=== PATIENT | female | born 1940 | race American Indian/Alaskan Native ===

== ENCOUNTER 2020-01-02 21:09 | Observation (INO) | payer MEDICARE, OTHER ==
--- NOTE | 2020-01-02 22:21 | Emergency Department Report ---
Blank Doc - Documentation Documentation: 79-year-old female that presents with epigastric abdominal pain. This initial assessment/diagnostic orders/clinical plan/treatment(s) is/are subject to change based on patient's health status, clinical progression and re- assessment by fellow clinical providers in the ED. Further treatment and workup at subsequent clinical providers discretion. Patient/guardians urged not to elope from the ED as their condition may be serious if not clinically assessed and managed. Initial orders include: 1- Patient sent to Main ED for further evaluation and treatment 2- cardiac workup
--- NOTE | 2020-01-02 23:01 | XRay Report ---
CHEST 2 VIEWS INDICATION / CLINICAL INFORMATION: MAIN: Chest Pain; CP w/epigastric pain onset 1d, "moves to the back; been belching"; h/o GERD, "don't take the medicine, it makes me sick". COMPARISON: 03/19/2014 FINDINGS: SUPPORT DEVICES: None. HEART / MEDIASTINUM: No significant abnormality. LUNGS / PLEURA: No significant pulmonary or pleural abnormality. No pneumothorax. ADDITIONAL FINDINGS: No significant additional findings. IMPRESSION: 1. No acute findings. No interval change. Signer Name: Jeimy Chaves MD Signed: 01/02/2020 10:57 PM Workstation Name: [id number]
[2020-01-02 23:47] LABS: Hematocrit 36.2 % (30.3-42.9); Hemoglobin 11.7 gm/dl (10.1-14.3); Mean Corpuscular HGB Conc 32 % (30-34); Mean Corpuscular Volume 95 fl (79-97); Platelet Count 302 K/mm3 (140-440); Red Blood Count 3.83 M/mm3 (3.65-5.03); Red Cell Distribution Width 12.6 % (13.2-15.2)
[2020-01-02 23:57] LABS: Alanine Aminotransferase 14 units/L (7-56); Albumin 4.4 g/dL (3.9-5); BUN/Creatinine Ratio 15; Blood Urea Nitrogen 12 mg/dL (7-17); Hemolysis Index 4
--- NOTE | 2020-01-03 00:03 | Emergency Department Report ---
HPI - General Chief Complaint: Abdominal Pain Time Seen by Provider: 01/02/20 22:20 - HPI HPI: 79-year-old -[place] female presents to the emergency department with complaint of some upper abdominal pain, midsternal chest discomfort and increased gas/belching. Patient says that she had some upper abdominal or epigastric pain starting yesterday. Today the pain also traveled up the middle of the chest and around to her back. She complains of a history of acid reflux. The patient tried some Rolaids for symptoms with transient relief. Primary care physician is Dr. Jones, mechanical engineering professor is Dr. Larsen, and power chisel operator is Dr. Maher. No recent travel or sick contacts at home. She denies any fever, shortness of breath, diaphoresis, lower extremity swelling. ED Past Medical Hx - Past Medical History Previous Medical History?: Yes Hx Hypertension: Yes Hx GERD: Yes (non-compliant "med makes me sick") Hx Arthritis: No - Surgical History Past Surgical History?: Yes Additional Surgical History: R ovary removed 1969 - Social History Smoking Status: Never Smoker Substance Use Type: None - Medications Home Medications: Home Medications Medication Instructions Recorded Confirmed Last Taken Type Ascorbic Acid [Vitamin C] 1,000 mg PO QDAY 03/10/14 03/19/14 03/19/14 History Cyclobenzaprine [Flexeril] 10 mg PO BID 03/10/14 03/19/14 03/19/14 History NIFEdipine [Procardia Xl] 60 mg PO QDAY 03/10/14 03/19/14 03/19/14 History Valsartan [Diovan] 160 mg PO QDAY 03/10/14 03/19/14 03/19/14 History HYDROcodone/APAP 5-325 [Paia 1 each PO Q6HR PRN #20 tablet 03/11/14 03/19/14 03/19/14 Rx 5/325 mg] Pregabalin [Lyrica] 50 mg PO BID 03/19/14 03/19/14 03/19/14 History ED Review of Systems ROS: Stated complaint: CHEST PAIN GAS Other details as noted in HPI Comment: All other systems reviewed and negative Constitutional: denies: chills, fever Eyes: denies: eye pain, vision change ENT: denies: ear pain, throat pain Respiratory: denies: cough, shortness of breath Cardiovascular: chest pain. denies: palpitations Gastrointestinal: abdominal pain. denies: vomiting Genitourinary: denies: dysuria, discharge Musculoskeletal: denies: joint swelling, arthralgia Skin: denies: rash, lesions Neurological: denies: headache, weakness Physical Exam - Physical Exam Vital Signs: Vital Signs 01/02/20 21:47 Temperature 98.8 F Pulse Rate 53 L Respiratory 12 Rate Blood Pressure 193/93 O2 Sat by Pulse 98 Oximetry Physical Exam: GENERAL: The patient is well-developed well-nourished. HENT: Normocephalic. Atraumatic. Patient has moist mucous membranes. EYES: Extraocular motions are intact. NECK: Supple. Trachea is midline. CHEST/LUNGS: Clear to auscultation. There is no respiratory distress noted. HEART/CARDIOVASCULAR: Regular. There is no tachycardia. ABDOMEN: Abdomen is soft. Mild right upper quadrant and epigastric tenderness to palpation. No guarding. Patient has normal bowel sounds. There is no abdominal distention. SKIN: Skin is warm and dry. NEURO: The patient is awake, alert, and oriented. The patient is cooperative. The patient has no focal neurologic deficits. Normal speech. MUSCULOSKELETAL: There is no tenderness or deformity. There is no evidence of acute injury. ED Course Vital Signs 01/02/20 21:47 Temperature 98.8 F Pulse Rate 53 L Respiratory 12 Rate Blood Pressure 193/93 O2 Sat by Pulse 98 Oximetry ED Medical Decision Making - Lab Data Result diagrams: 01/02/20 23:11 01/02/20 23:11 - EKG Data -: EKG Interpreted by Me EKG shows normal: sinus rhythm, axis, intervals, QRS complexes, ST-T waves (Flattening of T waves) Rate: bradycardia (52 bpm) - EKG Data When compared to previous EKG there are: no significant change Interpretation: unchanged when compared t (03/19/14) - Radiology Data Radiology results: report reviewed, image reviewed interpreted by me: Chest x-ray does not show any acute process. There are no pleural effusions, obvious pneumonia and there is no pneumothorax. Abdominal x-ray shows nonspecific nonobstructive bowel gas. ULTRASOUND ABDOMEN, LIMITED (RIGHT UPPER QUADRANT) INDICATION / CLINICAL INFORMATION: Upper abd pain. COMPARISON: None available. FINDINGS: PANCREAS: Visualized portion shows no significant abnormality. LIVER: No significant abnormality. GALLBLADDER: Small amount of sludge is present within the gallbladd er. No gallbladder wall thickening or abnormal gallbladder distention. BILE DUCTS: No significant abnormality. Common bile duct measures 2 mm. FREE FLUID: None. ADDITIONAL FINDINGS: Right kidney was also imaged. There are 2 simple cysts in the right kidney measuring proximally 4 cm each.. IMPRESSION: 1. Small amount of sludge within the gallbladder lumen. No abnormal gallbladder distention or gallbladder wall thickening. 2. Incidental finding of right renal simple cysts. - Medical Decision Making This patient presents to the emergency department with the complaint of a 2-day history of some upper abdominal pain and a 1 day history of some chest discomf ort. EKG does not show any signs of ST elevation ME. Labs have been unremarkable thus far including CBC, metabolic panel and troponin level. Chest x-ray does not show any pneumonia, pleural effusions, pneumothorax, focal consolidation, or any other acute process. Abdominal x-ray shows nonspecific nonobstructive bowel gas. Abdominal ultrasound shows some small amount of gallbladder sludge without signs of cholecystitis. While the patient's chest pains appear to come and go, she complains of feeling some generalized weakness. She also presents with elevated blood pressure. For these reasons, as well as a moderate heart score, the patient will be admitted to the hospital for further evaluation and treatment and was accepted for admission by the hospitalist, Dr. Lorenz. - Differential Diagnosis ME, cholelithiasis, cholecystitis, pancreatitis Critical Care Time: No Critical care attestation.: If time is entered above; I have spent that time in minutes in the direct care of this critically ill patient, excluding procedure time. ED Disposition Clinical Impression: Hypertensive urgency, Acute chest pain, Gallbladder sludge Abdominal pain Qualifiers: Abdominal location: upper abdomen, unspecified Qualified Code(s): R10.10 - Upper abdominal pain, unspecified Disposition: -09 OP ADMIT IP TO THIS HOSP Is pt being admited?: Yes Condition: Fair Time of Disposition: 02:46 Heart Score - HEART Score History: Slightly suspicious EKG: Normal Age: > 65 Risk factors: 1-2 risk factors Troponin: < normal limit HEART Score: 3 - Critical Actions Critical Actions: 0-3 pts:0.9-1.7%risk of adverse cardiac event.Candidate for discharge
[2020-01-03 00:10] LABS: INR 1.1 (0.87-1.13)
[2020-01-03 00:11] LABS: Partial Thromboplastin Time 32.3 Sec. (24.2-36.6)
--- NOTE | 2020-01-03 00:20 | XRay Report ---
ABDOMEN, 2 VIEWS INDICATION / CLINICAL INFORMATION: Abd pain. COMPARISON: None. FINDINGS: There are a few slightly prominent loops of gas containing small bowel in the left upper quadrant and central abdomen. I do not see any true abnormal dilatation. There is no free air. Normal colonic gas is noted Impression: Nonspecific bowel gas pattern. No evidence for obstruction. Signer Name: Jeimy Chaves MD Signed: 01/03/2020 12:16 AM Workstation Name: [id number]
[2020-01-03] MEDS ORDERED: LIDOCAINE VISCOUS 2% 15 ML ORAL LIQD PO ONE (01:56)
[2020-01-03] MEDS ORDERED: cloNIDine 0.1 MG TAB PO ONE (01:56)
--- NOTE | 2020-01-03 02:09 | Ultrasound Report ---
ULTRASOUND ABDOMEN, LIMITED (RIGHT UPPER QUADRANT) INDICATION / CLINICAL INFORMATION: Upper abd pain. COMPARISON: None available. FINDINGS: PANCREAS: Visualized portion shows no significant abnormality. LIVER: No significant abnormality. GALLBLADDER: Small amount of sludge is present within the gallbladder. No gallbladder wall thickening or abnormal gallbladder distention. BILE DUCTS: No significant abnormality. Common bile duct measures 2 mm. FREE FLUID: None. ADDITIONAL FINDINGS: Right kidney was also imaged. There are 2 simple cysts in the right kidney measu ring proximally 4 cm each.. IMPRESSION: 1. Small amount of sludge within the gallbladder lumen. No abnormal gallbladder distention or gallbla dder wall thickening. 2. Incidental finding of right renal simple cysts. Signer Name: Jeimy Chaves MD Signed: 01/03/2020 2:04 AM Workstation Name: [id number]
[2020-01-03] MEDS ORDERED: hydrALAZINE 20 MG/1 ML INJ IV ONE (02:11)
[2020-01-03] MEDS ORDERED: ASPIRIN 81 MG TAB CHEW PO ONE (02:12)
[2020-01-03] MEDS: ALUM-MAG HYDROXIDE-SIMETHICONE 200-200-20MG/5ML ORAL LIQD 30 ML PO ONE ×2 (02:53→02:54)
[2020-01-03] MEDS ORDERED: ONDANSETRON 4 MG/2 ML INJ IV PRN (02:56)
[2020-01-03] MEDS ORDERED: ACETAMINOPHEN 325 MG TAB PO PRN (02:56)
[2020-01-03] MEDS ORDERED: oxyCODONE /ACETAMINOPHEN 5-325MG TAB PO PRN (03:03)
--- NOTE | 2020-01-03 03:03 | History and Physical Report ---
History of Present Illness History of present illness: 79-year-old woman with a history of hypertension, GERD, noncompliant with her GERD medication because it makes her sick comes emergency room with complaints of chest pain that started yesterday. Pain is in the right substernal area which she describes as a sharp pain, intermittent every 10 minutes, intensity 5- 10, radiating around to the back, cannot identify exacerbating factor. Denies nausea vomiting, shortness of breath, diaphoresis or palpitation. Patient will be admitted for chest pain evaluation Review Of Systems: Constitutional: no weight loss, fever, chills Ears, eyes, nose, mouth and throat: no nasal congestion, no nasal discharge, no sinus pressure, blurry vision, diplopia Neck: No neck pain or rigidity. Cardiovascular: No palpitations Respiratory: No shortness of breath, cough Gastrointestinal: No hematochezia Genitourinary : no dysuria, frequency Musculoskeletal: no muscle ache , joint pain Integumentary: no rash, no pruritis Neurological: no parathesias, focal weakness Endocrine: no cold or heat intolerance, no polyuria or polydipsia Hematologic/Lymphatic: no easy bruising, no easy bleeding, no gland swelling Allergic/Immunologic: no urticaria, no angioedema. PAST MEDICAL HISTORY: hypertension, GERD, PAST SURGICAL HISTORY: Removal of the right fallopian and ovary SOCIAL HISTORY: Denies alcohol, tobacco, drugs FAMILY HISTORY: Hypertension Medications and Allergies Allergies Allergy/AdvReac Type Severity Reaction Status Date / Time monosodium Allergy Mild Swelling Uncoded 03/10/14 21:03 sesame Allergy Mild Shortness Uncoded 03/10/14 21:00 of Breath Home Medications Medication Instructions Recorded Confirmed Last Taken Type Ascorbic Acid [Vitamin C] 1,000 mg PO QDAY 03/10/14 03/19/14 03/19/14 History Cyclobenzaprine [Flexeril] 10 mg PO BID 03/10/14 03/19/14 03/19/14 History NIFEdipine [Procardia Xl] 60 mg PO QDAY 03/10/14 03/19/14 03/19/14 History Valsartan [Diovan] 160 mg PO QDAY 03/10/14 03/19/14 03/19/14 History HYDROcodone/APAP 5-325 [[place] 1 each PO Q6HR PRN #20 tablet 03/11/14 03/19/14 03/19/14 Rx 5/325 mg] Pregabalin [Lyrica] 50 mg PO BID 03/19/14 03/19/14 03/19/14 History Active Meds: Active Medications Acetaminophen (Tylenol) 650 mg PO Q4H PRN PRN Reason: Pain MILD(1-3)/Fever >100.5/SHAFER Enoxaparin Sodium (Enoxaparin) 30 mg SUB-Q QDAY YEN Ondansetron HCl (Zofran) 4 mg IV Q8H PRN PRN Reason: Nausea And Vomiting Sodium Chloride (Sodium Chloride Flush Syringe 10 Ml) 10 ml IV BID YEN Sodium Chloride (Sodium Chloride Flush Syringe 10 Ml) 10 ml IV PRN PRN PRN Reason: LINE FLUSH Exam - Physical Exam Narrative exam: Gen. appearance: Patient lying in bed, no apparent distress HEENT: Normocephalic, atraumatic, pupils equally round and reactive to light, extraocular movement intact, and no sclericterus,. No JVD or thyromegaly or nodule,neck supple, no carotid bruit ,mucous membranes moist, no exudate or erythema Heart: S1, S2, regular rate and rhythm Lungs: Clear bilaterally, breathing comfortable Abdomen: Positive bowel sounds, nontender, nondistended, no organomegaly Extremity: no edema, cyanosis, clubbing Skin: No rash, nodules, warm, dry Neuro: speech is fluent, moves extremities, sensory intact - Constitutional Vitals: Temp Pulse Resp BP Pulse Ox 98.8 F 53 L 12 193/93 98 01/02/20 21:47 01/02/20 21:47 01/02/20 21:47 01/02/20 21:47 01/02/20 21:47 Results - Labs CBC & Chem 7: 01/02/20 23:11 01/02/20 23:11 Labs: Abnormal lab results 01/02/20 Range/Units 23:11 WBC 3.9 L (4.5-11.0) K/mm3 RDW 12.6 L (13.2-15.2) % - Imaging and Cardiology EKG: image reviewed Chest x-ray: report reviewed US - abdomen: report reviewed Assessment and Plan Assessment Chest pain, atypical Check cardiac enzymes, consult cardiology Start aspirin, Percocet Hypertension uncontrolled Start IV hydralazine for blood pressure control Continue outpatient medications DVT prophylaxis
[2020-01-03 04:03] LABS: Basophils # (Auto) 0.1 K/mm3 (0.0-0.1); Basophils % (Auto) 1.3 % (0.0-1.8); Eosinophils # (Auto) 0.2 K/mm3 (0.0-0.4); Eosinophils % (Auto) 4.5 % (0.0-4.3); Hematocrit 35.7 % (30.3-42.9); Hemoglobin 12.1 gm/dl (10.1-14.3); Lymphocytes # (Auto) 1.5 K/mm3 (1.2-5.4); Lymphocytes % (Auto) 36.6 % (13.4-35.0); Mean Corpuscular HGB Conc 34 % (30-34); Mean Corpuscular Volume 92 fl (79-97); Monocytes # (Auto) 0.3 K/mm3 (0.0-0.8); Monocytes % (Auto) 7.3 % (0.0-7.3); Platelet Count 290 K/mm3 (140-440); Red Blood Count 3.87 M/mm3 (3.65-5.03); Red Cell Distribution Width 12.6 % (13.2-15.2)
[2020-01-03 04:16] LABS: BUN/Creatinine Ratio 14; Blood Urea Nitrogen 11 mg/dL (7-17); Calcium 9.8 mg/dL (8.4-10.2); Hemolysis Index 13
[2020-01-03 04:19] LABS: Creatine Kinase MB 1.3 ng/mL (0.0-4.0)
[2020-01-03] MEDS: hydrALAZINE 20 MG/1 ML INJ IV PRN (06:44)
[2020-01-03 09:25] LABS: Creatine Kinase MB 1.2 ng/mL (0.0-4.0)
[2020-01-03] MEDS: ENOXAPARIN 40 MG/0.4 ML INJ SUB-Q SCH (09:59)
[2020-01-03] MEDS: ASPIRIN 81 MG TAB CHEW PO SCH (09:59)
--- NOTE | 2020-01-03 11:55 | Event Note ---
Date: 01/03/20 Patient with chest pain,abd pain. I have seen and examined her.
--- NOTE | 2020-01-03 12:32 | Consultation ---
History of Present Illness Consult date: 01/03/20 Consult reason: chest pain History of present illness: This is an 79-year old woman who presented with complaint of abdominal pain and increased gas/belching. Patient reports pain traveled under her right breast and around to her back. She denies midsternal chest pain. Abdominal reports nonspecific bowel gas pattern. Chest x-ray is negative. An ECG is sinus bradycardia with nonspecific Twave abnormalities. Patient is known to [facility] and follows with Dr Maher on a routine basis. In 2018 she underwent a persantine thallium stress test that was normal myocardial perfusion. An echocardiogram done a month ago documents a normal LVEF 50%. Medications and Allergies Allergies Allergy/AdvReac Type Severity Reaction Status Date / Time monosodium Allergy Mild Swelling Uncoded 03/10/14 21:03 sesame Allergy Mild Shortness Uncoded 03/10/14 21:00 of Breath Home Medications Medication Instructions Recorded Confirmed Last Taken Type Ascorbic Acid [Vitamin C] 1,000 mg PO QDAY 03/10/14 01/03/20 01/02/20 History NIFEdipine [Procardia Xl] 60 mg PO QDAY 03/10/14 01/03/20 01/02/20 History Losartan Potassium 100 mg PO QDAY 01/03/20 01/03/20 01/01/20 History Active Meds: Active Medications Acetaminophen (Tylenol) 650 mg PO Q4H PRN PRN Reason: Pain MILD(1-3)/Fever >100.5/SHAFER Aspirin (Baby Aspirin) 81 mg PO QDAY [facility] Last Admin: 01/03/20 09:59 Dose: 81 mg Documented by: Enoxaparin Sodium (Enoxaparin) 40 mg SUB-Q QDAY [facility] Last Admin: 01/03/20 09:59 Dose: Not Given Documented by: Hydralazine HCl (Apresoline) 5 mg IV Q6H PRN PRN Reason: Hypertension Last Admin: 01/03/20 06:44 Dose: 5 mg Documented by: Ondansetron HCl (Zofran) 4 mg IV Q8H PRN PRN Reason: Nausea And Vomiting Oxycodone/Acetaminophen (Percocet 5/325) 1 tab PO Q6H PRN PRN Reason: Pain, Moderate (4-6) Sodium Chloride (Sodium Chloride Flush Syringe 10 Ml) 10 ml IV BID [facility] Last Admin: 01/03/20 09:59 Dose: 10 ml Documented by: Sodium Chloride (Sodium Chloride Flush Syringe 10 Ml) 10 ml IV PRN PRN PRN Reason: LINE FLUSH Physical Examination Vital Signs Temp Pulse Resp BP Pulse Ox 98.8 F 53 L 12 193/93 98 01/02/20 21:47 01/02/20 21:47 01/02/20 21:47 01/02/20 21:47 01/02/20 21:47 General appearance: no acute distress HEENT: Positive: PERRL Neck: Positive: trachea midline Cardiac: Positive: Reg Rate and Rhythm Lungs: Positive: Decreased Breath Sounds Neuro: Positive: Grossly Intact Extremities: Absent: edema Results 01/03/20 03:49 01/03/20 03:49 Cardiac Enzymes 01/02/20 01/03/20 01/03/20 Range/Units 23:11 03:49 08:45 AST 19 (5-40) units/L CK-MB (CK-2) 1.3 1.2 (0.0-4.0) ng/mL Coagulation 01/02/20 Range/Units 23:11 PT 14.3 (12.2-14.9) Sec. INR 1.10 (0.87-1.13) APTT 32.3 (24.2-36.6) Sec. CBC 01/02/20 01/03/20 Range/Units 23:11 03:49 WBC 3.9 L 4.1 L (4.5-11.0) K/mm3 RBC 3.83 3.87 (3.65-5.03) M/mm3 Hgb 11.7 12.1 (10.1-14.3) gm/dl Hct 36.2 35.7 (30.3-42.9) % Plt Count 302 290 (140-440) K/mm3 Lymph # Molder Pipe Covering 1.5 [place] # Molder Pipe Covering 0.3 Eos # Molder Pipe Covering 0.2 Baso # Molder Pipe Covering 0.1 Comprehensive Metabolic Panel 01/02/20 01/03/20 Range/Units 23:11 03:49 Sodium 138 139 (137-145) mmol/L Potassium 3.9 3.7 (3.6-5.0) mmol/L Chloride 100.5 102.5 (98-107) mmol/L Carbon Dioxide 25 24 (22-30) mmol/L BUN 12 11 (7-17) mg/dL Creatinine 0.8 0.8 (0.7-1.2) mg/dL Glucose 94 97 (65-100) mg/dL Calcium 10.0 9.8 (8.4-10.2) mg/dL AST 19 (5-40) units/L ALT 14 (7-56) units/L Alkaline Phosphatase 69 (35-129) units/L Total Protein 7.2 (6.3-8.2) g/dL Albumin 4.4 (3.9-5) g/dL Assessment and Plan Epigastric pain Hx of GERD Hypertension Normal MPI 04/2018. LVEF 50% by echo 11/2019. No cardiac workup indicated. Management of epigastric pain as per primary team.
[2020-01-03] MEDS ORDERED: HYDROcodone/ACETAMINOPHEN 5-325 MG TAB PO PRN (12:50)
[2020-01-03] MEDS ORDERED: PANTOPRAZOLE 40 MG INJ IV SCH (13:00)
[2020-01-03] MEDS: PANTOPRAZOLE 40 MG INJ IV SCH (13:47)
[2020-01-03] MEDS ORDERED: SIMETHICONE 80 MG CHEW TAB PO PRN (13:55)
[2020-01-04] MEDS: PANTOPRAZOLE 40 MG INJ IV SCH (03:53)
[2020-01-04] MEDS: ASPIRIN 81 MG TAB CHEW PO SCH (09:35)
--- NOTE | 2020-01-04 09:36 | Progress Note ---
Assessment and Plan Epigastric pain Hx of GERD Hypertension Normal MPI 04/2018. LVEF 50% by echo 11/2019. Recommendations: Optimal blood pressure management. Otherwise, conservative cardiac management. Subjective Date of service: 01/04/20 Interval history: Patient is resting in bed comfortably. Blood pressure 180/63 this morning. Objective Vital Signs Temp Pulse Resp BP Pulse Ox 01/04/20 08:30 98.2 F 48 L 18 180/63 96 01/04/20 04:14 98.8 F 52 L 18 163/70 97 01/04/20 04:00 52 L 01/04/20 00:00 18 01/03/20 23:06 99.0 F 53 L 18 167/60 96 01/03/20 21:37 99 01/03/20 20:00 55 L 01/03/20 19:41 99.3 F 57 L 18 146/60 96 01/03/20 16:36 99.5 F 55 L 18 166/60 97 01/03/20 10:27 98.3 F 20 137/57 - Physical Examination General: No Apparent Distress HEENT: Positive: PERRL Neck: Positive: trachea midline Cardiac: Positive: Bradycardia Lungs: Positive: Decreased Breath Sounds Neuro: Positive: Grossly Intact Extremities: Absent: edema
[2020-01-04] MEDS ORDERED: ASCORBIC ACID 500 MG TAB PO SCH (10:00)
[2020-01-04] MEDS ORDERED: LOSARTAN 50 MG TAB PO SCH (10:00)
[2020-01-04] MEDS ORDERED: NIFEdipine XL 90 MG TAB PO SCH (10:00)
[2020-01-04] MEDS: hydrALAZINE 20 MG/1 ML INJ IV PRN (10:03)
[2020-01-04] MEDS ORDERED: NIFEdipine XL 60 MG TAB PO SCH (10:30)
[2020-01-04] MEDS: ENOXAPARIN 40 MG/0.4 ML INJ SUB-Q SCH (11:22)
--- NOTE | 2020-01-04 12:47 | Discharge Summary ---
Providers - Providers Date of Admission: 01/03/20 04:17 Date of discharge: 01/04/20 Attending physician: SHAHAB BANERJEE 01/03/20 02:56 Consult to Physician [CONS] Routine Comment: Consulting Provider: MACI MATTA Physician Instructions: Reason For Exam: cp Primary care physician: GHASSAN ALAS Hospitalization Condition: Fair Disposition: DC-01 TO HOME OR SELFCARE - Discharge Diagnoses (1) Acute chest pain Status: Acute Comment: Due to GERD (2) GERD (gastroesophageal reflux disease) Status: Acute Exam - Constitutional Vitals: Temp Pulse Resp BP Pulse Ox 98.4 F 70 18 146/53 97 01/04/20 11:00 01/04/20 11:25 01/04/20 11:00 01/04/20 11:25 01/04/20 11:00 Plan Activity: advance as tolerated Diet: low fat, low cholesterol, low salt Plan of Treatment: 1.Follow up with PCP in 1 week. 2.Follow up with GI in 1 week Follow up with: GHASSAN ALAS JR, MD [Primary Care Provider] - 7 Days Prescriptions: Pantoprazole [Protonix TAB] 40 mg PO DAILY 30 Days tablet
[2020-01-04 14:25] VITALS: BP 154/53
[2020-01-04] MEDS ORDERED: PANTOPRAZOLE 40 MG TAB PO SCH (22:00)
== END 2020-01-04 15:50 | disposition home or self-care (01) ==
LOC: ED 21:09 → INTOOBSV 01-03 04:17 → 4A 01-03 04:17
PROVIDERS: ADMIT Internal Medicine; ATTEND Internal Medicine
DX: R07.89 Other chest pain (principal); I16.0 Hypertensive urgency; I10 Essential (primary) hypertension; K82.4 Cholesterolosis of gallbladder; E78.5 Hyperlipidemia, unspecified
CPT/HCPCS: 36415; 71046; 74019; 76705; 80048; 80053; 82550; 82553; 83690; 84439; 84443; 84484; 85025; 85610; 85730; 93005; 93010; 96374; 96375; 96376; 99285; C9113; G0378; J0360; J1650

== ENCOUNTER 2021-10-25 08:29 | Observation (INO) | payer MEDICARE, OTHER ==
[2021-10-25 12:26] LABS: Bilirubin,Urine NEG (Negative); Blood,Urine NEG (Negative); Color,Urine Yellow (Yellow); Mucus,Urine FEW /HPF; Protein,Urine <15 mg/dL mg/dL (Negative); Urobilinogen,Urine < 2.0 mg/dL (<2.0)
[2021-10-25] MEDS ORDERED: PANTOPRAZOLE 40 MG INJ IV ONE (12:26)
[2021-10-25] MEDS ORDERED: SODIUM CHLORIDE 0.9% 1000 ML 1,000 ML IV ONE (12:26)
--- NOTE | 2021-10-25 12:38 | Emergency Department Report ---
ED GI Bleed HPI - General Chief complaint: GI Bleed Stated complaint: RECTAL BLEEDING Time Seen by Provider: 10/25/21 12:24 Source: patient, EMS Mode of arrival: Stretcher Limitations: No Limitations - History of Present Illness Initial comments: Patient is 80 years old female with history of GERD and hypertension. Patient presented to the ER complaining of lower GI bleed. Patient stated that symptoms started yesterday with loose bowel however last night she had 2 episode of bright red blood and 2 episode this morning. Patient stated that she was diagnosed with upper respiratory infection at an urgent care and she was given prednisone for 5 days. Patient denied any dizziness, chest pain, shortness of breath, nausea or vomiting. No hematemesis, hemoptysis or hematuria. MD complaint: gross hematochezia -: Last night Severity scale (0 -10): 0 - Related Data Home Medications Medication Instructions Recorded Confirmed Last Taken Ascorbic Acid [Vitamin C] 1,000 mg PO QDAY 03/10/14 01/03/20 01/02/20 NIFEdipine [Procardia Xl] 60 mg PO QDAY 03/10/14 01/03/20 01/02/20 Losartan Potassium 100 mg PO QDAY 01/03/20 01/03/20 01/01/20 Previous Rx's Medication Instructions Recorded Last Taken Type Pantoprazole [Protonix TAB] 40 mg PO DAILY 30 Days tablet 01/04/20 Unknown Rx Allergies Allergy/AdvReac Type Severity Reaction Status Date / Time monosodium Allergy Mild Swelling Uncoded 03/10/14 21:03 sesame Allergy Mild Shortness Uncoded 03/10/14 21:00 of Breath ED Review of Systems ROS: Stated complaint: RECTAL BLEEDING Other details as noted in HPI Comment: All other systems reviewed and negative Constitutional: denies: chills, fever ENT: congestion Respiratory: denies: cough, shortness of breath, SOB with exertion, SOB at rest, wheezing Gastrointestinal: hematochezia. denies: abdominal pain, nausea, vomiting, diarrhea, constipation, hematemesis, melena Musculoskeletal: denies: back pain Neurological: denies: headache, weakness, numbness, paresthesias ED Past Medical Hx - Past Medical History Previous Medical History?: Yes Hx Hypertension: Yes Hx Congestive Heart Failure: No Hx Diabetes: No Hx GERD: Yes (non-compliant "med makes me sick") Hx Arthritis: No Hx Asthma: Yes Hx COPD: No - Surgical History Additional Surgical History: R ovary removed 1969 - Social History Smoking Status: Never Smoker - Medications Home Medications: Home Medications Medication Instructions Recorded Confirmed Last Taken Type Ascorbic Acid [Vitamin C] 1,000 mg PO QDAY 03/10/14 01/03/20 01/02/20 History NIFEdipine [Procardia Xl] 60 mg PO QDAY 03/10/14 01/03/20 01/02/20 History Losartan Potassium 100 mg PO QDAY 01/03/20 01/03/20 01/01/20 History Pantoprazole [Protonix TAB] 40 mg PO DAILY 30 Days tablet 01/04/20 Unknown Rx ED Physical Exam - General Limitations: No Limitations General appearance: alert, in no apparent distress - Head Head exam: Present: atraumatic, normocephalic, normal inspection - Eye Eye exam: Present: normal appearance - ENT ENT exam: Present: normal exam, normal orophraynx, mucous membranes moist - Neck Neck exam: Present: normal inspection, full ROM. Absent: tenderness, meni ngismus - Respiratory Respiratory exam: Present: normal lung sounds bilaterally - Cardiovascular Cardiovascular Exam: Present: bradycardia - GI/Abdominal GI/Abdominal exam: Present: soft, normal bowel sounds. Absent: distended, tenderness, guarding, rebound, rigid, organomegaly, mass, bruit, pulsatile mass, hernia - Rectal Rectal exam: Present: hemorrhoids - Extremities Exam Extremities exam: Present: normal inspection, full ROM, normal capillary refill. Absent: tenderness - Back Exam Back exam: Present: normal inspection, full ROM. Absent: CVA tenderness (R), CVA tenderness (L) - Neurological Exam Neurological exam: Present: alert, oriented X3, CN II-XII intact, normal gait, reflexes normal. Absent: motor sensory deficit - Psychiatric Psychiatric exam: Present: normal mood - Skin Skin exam: Present: warm, intact, normal color ED Course Vital Signs 10/25/21 08:31 Temperature 98.5 F Pulse Rate 56 L Respiratory 18 Rate Blood Pressure 164/72 [Left] O2 Sat by Pulse 98 Oximetry - Consultations Consultation #1: 10/25/21 19:08 I discussed the patient with Dr. Gibson, gastroenterology on-call and he stated that he will see the patient. ED Medical Decision Making - Lab Data Result diagrams: 10/25/21 13:03 10/25/21 13:03 - Medical Decision Making Patient is 80 years old female with history of GERD and hypertension. Patient presented to the ER complaining of lower GI bleed. Patient stated that symptoms started yesterday with loose bowel however last night she had 2 episode of bright red blood and 2 episode this morning. Patient stated that she was diagnosed with upper respiratory infection at an urgent care and she was given prednisone for 5 days. Patient denied any dizziness, chest pain, shortness of breath, nausea or vomiting. No hematemesis, hemoptysis or hematuria. Patient remained stable in the ER with stable vital sign. Hemoglobin is stable so far. I discussed the patient with Dr. Tilley, he agreed to admit the patient to medical service for further management. Critical Care Time: Yes Critical care time in (mins) excluding proc time.: 35 Critical care attestation.: If time is entered above; I have spent that time in minutes in the direct care of this critically ill patient, excluding procedure time. ED Disposition Clinical Impression: GI bleed Disposition: ADMITTED INPATIENT Is pt being admited?: Yes Condition: Stable Referrals: PRIMARY CARE, [Primary Care Provider] - 3-5 Days Forms: Accompanied Note
[2021-10-25 13:35] LABS: Basophils % (Auto) 0.7 % (0.0-1.8); Eosinophils # (Auto) 0.3 K/mm3 (0.0-0.4); Eosinophils % (Auto) 4.8 % (0.0-4.3); Hematocrit 35.8 % (30.3-42.9); Hemoglobin 11.5 gm/dl (10.1-14.3); Lymphocytes # (Auto) 1.4 K/mm3 (1.2-5.4); Lymphocytes % (Auto) 20.1 % (13.4-35.0); Mean Corpuscular HGB Conc 32 % (30-34); Mean Corpuscular Volume 94 fl (79-97); Monocytes # (Auto) 0.7 K/mm3 (0.0-0.8); Monocytes % (Auto) 9.7 % (0.0-7.3); Platelet Count 322 K/mm3 (140-440); Red Cell Distribution Width 12.7 % (13.2-15.2)
[2021-10-25 13:44] LABS: INR 0.96 (0.87-1.13)
[2021-10-25 13:45] LABS: Partial Thromboplastin Time 32.2 Sec. (24.2-36.6)
[2021-10-25 14:02] LABS: Alanine Aminotransferase 14 units/L (7-56); Albumin 4.2 g/dL (3.9-5); BUN/Creatinine Ratio 18; Blood Urea Nitrogen 16 mg/dL (7-17); Calcium 9.4 mg/dL (8.4-10.2); Hemolysis Index 6
[2021-10-25 14:07] LABS: Bilirubin,Direct < 0.2 mg/dL (0-0.2)
[2021-10-25] MEDS ORDERED: MORPHINE 2 MG/1 ML INJ IV PRN (23:04)
[2021-10-25] MEDS ORDERED: METOCLOPRAMIDE 10 MG/2 ML INJ IV PRN (23:04)
[2021-10-25] MEDS ORDERED: ACETAMINOPHEN 325 MG TAB PO PRN (23:04)
[2021-10-25] MEDS ORDERED: ONDANSETRON 4 MG/2 ML INJ IV PRN (23:04)
--- NOTE | 2021-10-25 23:14 | History and Physical Report ---
History of Present Illness Date of examination: 10/25/21 History of present illness: Patient is 80 years old female with history of GERD and hypertension. Patient presented to the ER complaining of lower GI bleed. Patient stated that symptoms started yesterday with loose bowel however last night she had 2 episode of bright red blood and 2 episode this morning. Patient stated that she was diagnosed with upper respiratory infection at an urgent care and she was given prednisone for 5 days. Patient denied any dizziness, chest pain, shortness of breath, nausea or vomiting. No hematemesis, hemoptysis or hematuria. MD complaint: gross hematochezia -: Last night Severity scale (0 -10): 0 - Related Data Home Medications Medication Instructions Recorded Confirmed Last Taken Ascorbic Acid [Vitamin C] 1,000 mg PO QDAY 03/10/14 01/03/20 01/02/20 NIFEdipine [Procardia Xl] 60 mg PO QDAY 03/10/14 01/03/20 01/02/20 Losartan Potassium 100 mg PO QDAY 01/03/20 01/03/20 01/01/20 Previous Rx's Medication Instructions Recorded Last Taken Type Pantoprazole [Protonix TAB] 40 mg PO DAILY 30 Days tablet 01/04/20 Unknown Rx Allergies Allergy/AdvReac Type Severity Reaction Status Date / Time monosodium Allergy Mild Swelling Uncoded 03/10/14 21:03 sesame Allergy Mild Shortness Uncoded 03/10/14 21:00 of Breath - Past Medical History --Previous Medical History?: Yes --Hypertension: Yes --GERD: Yes (non-compliant "med makes me sick") --Asthma: Yes - Surgical History Additional Surgical History: R ovary removed 1969 - Social History Smoking Status: Never Smoker - Medications Home Medications: Home Medications Medication Instructions Recorded Confirmed Last Taken Type Ascorbic Acid [Vitamin C] 1,000 mg PO QDAY 03/10/14 01/03/20 01/02/20 History NIFEdipine [Procardia Xl] 60 mg PO QDAY 03/10/14 01/03/20 01/02/20 History Losartan Potassium 100 mg PO QDAY 01/03/20 01/03/20 01/01/20 History Pantoprazole [Protonix TAB] 40 mg PO DAILY 30 Days tablet 01/04/20 Unknown Rx Review of Systems ROS: Stated complaint: RECTAL BLEEDING Other details as noted in HPI Comment: All other systems reviewed and negative Constitutional: denies: chills, fever ENT: congestion Respiratory: denies: cough, shortness of breath, SOB with exertion, SOB at rest, wheezing Gastrointestinal: hematochezia. denies: abdominal pain, nausea, vomiting, diarrhea, constipation, hematemesis, melena Musculoskeletal: denies: back pain Neurological: denies: headache, weakness, numbness, paresthesias Medications and Allergies Allergies Allergy/AdvReac Type Severity Reaction Status Date / Time monosodium Allergy Mild Swelling Uncoded 03/10/14 21:03 sesame Allergy Mild Shortness Uncoded 03/10/14 21:00 of Breath Home Medications Medication Instructions Recorded Confirmed Last Taken Type Ascorbic Acid [Vitamin C] 1,000 mg PO QDAY 03/10/14 01/03/20 01/02/20 History NIFEdipine [Procardia Xl] 60 mg PO QDAY 03/10/14 01/03/20 01/02/20 History Losartan Potassium 100 mg PO QDAY 01/03/20 01/03/20 01/01/20 History Pantoprazole [Protonix TAB] 40 mg PO DAILY 30 Days tablet 01/04/20 Unknown Rx Exam - Constitutional Vitals: Temp Pulse Resp BP Pulse Ox 98.5 F 56 L 18 164/72 98 10/25/21 08:31 10/25/21 08:31 10/25/21 08:31 10/25/21 08:31 10/25/21 08:31 Results - Labs CBC & Chem 7: 10/25/21 13:03 10/25/21 13:03 Labs: Laboratory Last Values WBC 6.8 K/mm3 (4.5-11.0) 10/25/21 13:03 RBC 3.80 M/mm3 (3.65-5.03) 10/25/21 13:03 Hgb 11.5 gm/dl (10.1-14.3) 10/25/21 13:03 Hct 35.8 % (30.3-42.9) 10/25/21 13:03 MCV 94 fl (79-97) 10/25/21 13:03 MCH 30 pg (28-32) 10/25/21 13:03 MCHC 32 % (30-34) 10/25/21 13:03 RDW 12.7 % (13.2-15.2) L 10/25/21 13:03 Plt Count 322 K/mm3 (140-440) 10/25/21 13:03 Lymph % (Auto) 20.1 % (13.4-35.0) 10/25/21 13:03 [place] % (Auto) 9.7 % (0.0-7.3) H 10/25/21 13:03 Eos % (Auto) 4.8 % (0.0-4.3) H 10/25/21 13:03 Baso % (Auto) 0.7 % (0.0-1.8) 10/25/21 13:03 Lymph # (Auto) 1.4 K/mm3 (1.2-5.4) 10/25/21 13:03 [place] # (Auto) 0.7 K/mm3 (0.0-0.8) 10/25/21 13:03 Eos # (Auto) 0.3 K/mm3 (0.0-0.4) 10/25/21 13:03 Baso # (Auto) 0.0 K/mm3 (0.0-0.1) 10/25/21 13:03 Seg Neutrophils % 64.7 % (40.0-70.0) 10/25/21 13:03 Seg Neutrophils # 4.4 K/mm3 (1.8-7.7) 10/25/21 13:03 PT 13.8 Sec. (12.2-14.9) 10/25/21 13:03 INR 0.96 (0.87-1.13) 10/25/21 13:03 APTT 32.2 Sec. (24.2-36.6) 10/25/21 13:03 Sodium 140 mmol/L (137-145) 10/25/21 13:03 Potassium 3.7 mmol/L (3.6-5.0) 10/25/21 13:03 Chloride 103.2 mmol/L (98-107) 10/25/21 13:03 Carbon Dioxide 24 mmol/L (22-30) 10/25/21 13:03 Anion Gap 17 mmol/L 10/25/21 13:03 BUN 16 mg/dL (7-17) 10/25/21 13:03 Creatinine 0.9 mg/dL (0.6-1.2) 10/25/21 13:03 Estimated GFR > 60 ml/min 10/25/21 13:03 BUN/Creatinine Ratio 18 % 10/25/21 13:03 Glucose 117 mg/dL (65-100) H 10/25/21 13:03 Calcium 9.4 mg/dL (8.4-10.2) 10/25/21 13:03 Total Bilirubin 0.60 mg/dL (0.1-1.2) 10/25/21 13:03 Direct Bilirubin < 0.2 mg/dL (0-0.2) 10/25/21 13:03 Indirect Bilirubin 0.4 mg/dL 10/25/21 13:03 AST 13 units/L (5-40) 10/25/21 13:03 ALT 14 units/L (7-56) 10/25/21 13:03 Alkaline Phosphatase 85 units/L (35-129) 10/25/21 13:03 Total Protein 7.1 g/dL (6.3-8.2) 10/25/21 13:03 Albumin 4.2 g/dL (3.9-5) 10/25/21 13:03 Albumin/Globulin Ratio 1.4 % 10/25/21 13:03 Urine Color Yellow (Yellow) 10/25/21 Unknown Urine Turbidity Slightly-cloudy (Clear) 10/25/21 Unknown Urine pH 6.0 (5.0-7.0) 10/25/21 Unknown Ur Specific [place] 1.018 (1.003-1.030) 10/25/21 Unknown Urine Protein <15 mg/dl mg/dL (Negative) 10/25/21 Unknown Urine Glucose (UA) Neg mg/dL (Negative) 10/25/21 Unknown Urine Ketones Neg mg/dL (Negative) 10/25/21 Unknown Urine Blood Neg (Negative) 10/25/21 Unknown Urine Nitrite Neg (Negative) 10/25/21 Unknown Urine Bilirubin Neg (Negative) 10/25/21 Unknown Urine Urobilinogen < 2.0 mg/dL (<2.0) 10/25/21 Unknown Ur Leukocyte Esterase Mod (Negative) 10/25/21 Unknown Urine WBC (Auto) 2.0 /HPF (0.0-6.0) 10/25/21 Unknown Urine RBC (Auto) 4.0 /HPF (0.0-6.0) 10/25/21 Unknown U Epithel Cells (Auto) 1.0 /HPF (0-13.0) 10/25/21 Unknown Urine Mucus Few /HPF 10/25/21 Unknown Blood Type O POSITIVE 10/25/21 13:03 Antibody Screen Negative 10/25/21 13:03 Assessment and Plan Advance Directives: Yes (Full code) - Patient Problems (1) GI bleed Current Visit: Yes Status: Acute
[2021-10-25] MEDS ORDERED: SODIUM CHLORIDE 0.9% 1000 ML 1,000 ML IV SCH (23:15)
[2021-10-25 23:45] LABS: Hemoglobin 11.6 gm/dl (10.1-14.3)
[2021-10-25] MEDS ORDERED: PANTOPRAZOLE 80 MG in SODIUM CHLORIDE 0.9% 100 ML IV SCH (23:45)
[2021-10-25] MEDS ORDERED: cloNIDine TTS 0.2 MG/24 HR PATCH TD SCH (23:45)
[2021-10-26] MEDS ORDERED: BENZONATATE 100 MG CAP PO ONE (00:24)
[2021-10-26 05:40] LABS: Basophils % (Auto) 0.7 % (0.0-1.8); Eosinophils # (Auto) 0.3 K/mm3 (0.0-0.4); Eosinophils % (Auto) 5.8 % (0.0-4.3); Hematocrit 34.6 % (30.3-42.9); Hemoglobin 11.1 gm/dl (10.1-14.3); Lymphocytes # (Auto) 1.3 K/mm3 (1.2-5.4); Lymphocytes % (Auto) 23.8 % (13.4-35.0); Mean Corpuscular HGB Conc 32 % (30-34); Mean Corpuscular Volume 94 fl (79-97); Monocytes # (Auto) 0.8 K/mm3 (0.0-0.8); Monocytes % (Auto) 13.4 % (0.0-7.3); Platelet Count 299 K/mm3 (140-440); Red Blood Count 3.67 M/mm3 (3.65-5.03); Red Cell Distribution Width 12.5 % (13.2-15.2)
[2021-10-26 06:03] LABS: Alanine Aminotransferase 12 units/L (7-56); Albumin 3.9 g/dL (3.9-5); BUN/Creatinine Ratio 19; Blood Urea Nitrogen 15 mg/dL (7-17); Calcium 9.1 mg/dL (8.4-10.2); Hemolysis Index 14
[2021-10-26 07:05] VITALS: BP 168/69
--- NOTE | 2021-10-26 12:53 | Consultation ---
History of Present Illness - Reason for Consult Consult date: 10/26/21 Hematochezia Requesting physician: GIDEON EUGENE - History of Present Illness Ms. Rivera is an 80-year-old woman on whom I was consulted for hematochezia. She was in her usual state of good health and was in [place]. She developed cold and was given Claritin and prednisone for 5 days which she completed. On October 24, she had diarrhea with 4 loose brown bowel movements. Later that day, she noted bright red blood on toilet paper and in the bowl when she went to urinate. She states that she strained at that time but had no passage of rectal material. On October 25, she had 2 more bouts where she saw red blood in the bowl with no stool. These were also associated with urination and straining. She therefore came to the emergency room. She has had no further bleeding since then and has had no bowel movements. Of note, patient has a history of hemorrhoids with occasional bright red blood per rectum. She had a colonoscopy last year by Dr. Larsen which she states was otherwise normal. She was told to see a surgeon for hemorrhoid surgery but did not do so. She denies abdominal pain, nausea, vomiting, unexplained weight loss. There is no change in her bowel habits. She denies melena. Medications reviewed. Past History Past Medical History: hypertension Social history: denies: smoking, alcohol abuse Medications and Allergies Allergies Allergy/AdvReac Type Severity Reaction Status Date / Time monosodium glutamate Allergy swelling, Verified 10/26/21 11:02 throat itches ciprofloxacin AdvReac anxiety Verified 10/26/21 10:52 sesame Allergy Mild Shortness Uncoded 10/26/21 11:02 of Breath, swelling, throat itches Home Medications Medication Instructions Recorded Confirmed Last Taken Type Ascorbic Acid [Vitamin C] 1,000 mg PO QDAY 03/10/14 10/26/21 10/24/21 History NIFEdipine [Procardia Xl] 60 mg PO QDAY 03/10/14 10/26/21 10/25/21 History Losartan Potassium 100 mg PO QDAY 01/03/20 10/26/21 10/25/21 History Albuterol Mdi (or & Nicu Only) 2 puff IH QID PRN 10/26/21 10/26/21 10/25/21 History [ProAir HFA Inhaler] Alendronate Sodium [Fosamax] 70 mg PO QWEEK 10/26/21 10/26/21 2 Weeks Ago History ~10/12/21 Fluticasone [Flonase] 2 spray NS QDAY 10/26/21 10/26/21 10/24/21 History Loratadine [Allergy Relief] 10 mg PO QDAY 10/26/21 10/26/21 10/24/21 History predniSONE [Deltasone] 20 mg PO QDAY 10/26/21 10/26/21 10/23/21 History Active Meds: Active Medications Acetaminophen (Acetaminophen 325 Mg Tab) 650 mg PO Q4H PRN PRN Reason: Pain MILD(1-3)/Fever >100.5/SHAFER Clonidine HCl (Clonidine Tts 0.2 Mg/24 Hr Patch) 0.2 mg TD [place] YEN Last Admin: 10/26/21 00:16 Dose: 0.2 mg Documented by: Sodium Chloride (Nacl 0.9% 1000 Ml) 1,000 mls @ 75 mls/hr IV DIRECT YEN Pantoprazole Sodium 80 mg/ (Sodium Chloride) 100 mls @ 10 mls/hr IV DIRECT YEN Last Admin: 10/26/21 02:26 Dose: 8 mg/hr, 10 mls/hr Documented by: Metoclopramide HCl (Metoclopramide 10 Mg/2 Ml Inj) 10 mg IV Q6H PRN PRN Reason: Nausea And Vomiting Morphine Sulfate (Morphine 2 Mg/1 Ml Inj) 2 mg IV Q4H PRN PRN Reason: Pain, Moderate (4-6) Ondansetron HCl (Ondansetron 4 Mg/2 Ml Inj) 4 mg IV Q8H PRN PRN Reason: Nausea And Vomiting Sodium Chloride (Sodium Chloride 0.9% 10 Ml Flush Syringe) 10 ml IV BID YEN Sodium Chloride (Sodium Chloride 0.9% 10 Ml Flush Syringe) 10 ml IV PRN PRN PRN Reason: LINE FLUSH Review of Systems All systems: negative (As per HPI) Exam - Constitutional Vitals: Temp Pulse Resp BP Pulse Ox 98.5 F 54 L 15 168/69 99 10/25/21 08:31 10/26/21 06:31 10/26/21 06:31 10/26/21 06:31 10/26/21 06:31 General appearance: Present: no acute distress - EENT Eyes: Present: PERRL, EOM intact - Respiratory Respiratory effort: normal Respiratory: bilateral: CTA - Cardiovascular Rhythm: regular Heart Sounds: Present: S1 & S2 - Extremities Extremities: No edema - Abdominal General gastrointestinal: Present: soft, non-tender - Rectal Rectal Exam: normal rectal tone, hemorrhoids (Irritated reddish hemorrhoid noted, but no blood noted), other (No stool, trace mucus with smidge of brown) Results - Labs CBC & Chem 7: 10/26/21 05:22 10/26/21 05:22 Labs: Abnormal lab results 10/25/21 10/25/21 10/26/21 Range/Units 13:03 13:03 05:22 RDW 12.7 L 12.5 L (13.2-15.2) % [place] % (Auto) 9.7 H 13.4 H (0.0-7.3) % Eos % (Auto) 4.8 H 5.8 H (0.0-4.3) % Glucose 117 H (65-100) mg/dL Assessment and Plan 1. Rectal bleeding -most consistent with hemorrhoidal bleeding due to straining at time of urination. Hemoglobin is stable. Patient states she had a colonoscopy last year. -May advance diet and discharge to home from GI standpoint. -Patient may follow-up with her regular GI doctor as outpatient We will sign off. Thanks.
== END 2021-10-26 18:05 | disposition home or self-care (01) ==
LOC: ED 08:29 → 4A 10-26 02:34 → INTOOBSV 10-26 02:34 → 4A 10-26 07:52
PROVIDERS: ADMIT Internal Medicine; ATTEND Internal Medicine
DX: K92.2 Gastrointestinal hemorrhage, unspecified (principal); I10 Essential (primary) hypertension; K21.9 Gastro-esophageal reflux disease without esophagitis; J45.909 Unspecified asthma, uncomplicated; Z79.899 Other long term (current) drug therapy; Z98.890 Other specified postprocedural states; Z90.721 Acquired absence of ovaries, unilateral
CPT/HCPCS: 36415; 80048; 80053; 80076; 81001; 85014; 85018; 85025; 85610; 85730; 86850; 86900; 86901; 96361; 96365; 96366; 96376; 99291; C9113; G0378; J7030; Q0162